=== PATIENT | female | born 1950 | race Caucasian/White ===

== ENCOUNTER 2022-09-21 07:32 | Outpatient (REF) | payer MEDICARE, SELFPAY ==
--- NOTE | ~2022-09-21 | MR_ITS ---
EXAMINATION: MR CERVICAL SPINE WITHOUT CONTRAST CLINICAL INFORMATION: Chronic paresthesias of upper extremities. COMPARISON: None. TECHNIQUE: Multiplanar, multisequential imaging of the cervical spine was performed without contrast. FINDINGS: VERTEBRAL BODIES AND PARASPINAL SOFT TISSUES: There are mixed chronic and mild edematous endplate changes with severe disc space narrowing at the C4-C5 level where there is a mild retrosubluxation. Similar significant loss of disc height and mild posterior subluxation evident at the C5-C6 level. The atlantoaxial articulation is maintained. There is a mild anterolisthesis at the C3-C4 level. Iohn-vz-cklkknyc loss of disc height evident at the C6-C7 level. There is a mild leftward curvature of the cervical spine. No compression fractures are seen. The paraspinal soft tissues are normal. The vertebral artery flow-voids are maintained. The imaged lung apices are clear. CERVICOMEDULLARY JUNCTION AND VISUALIZED POSTERIOR FOSSA: The craniovertebral junction and imaged portions of the brain parenchyma appear normal. No cord signal abnormality or syrinx is seen. There is a small dependent fluid level in the sphenoid sinus cavity. SPINAL LEVELS: C2-C3: No disc pathology. No central canal stenosis or foraminal narrowing. C3-C4: Mild anterolisthesis and small central disc protrusion. No central canal stenosis or foraminal narrowing. Mild facet arthropathy on the right side. C4-C5: Mixed edematous and chronic fatty marrow endplate changes with severe disc space narrowing and a mild retrosubluxation. Shallow, broad-based disc-osteophyte complex with very mild central canal encroachment. Severe bilateral foraminal narrowing. C5-C6: Severe loss of disc height and disc-osteophyte complex with mild central canal stenosis and severe bilateral foraminal narrowing. C6-C7: Efnx-wc-sddoyoil loss of disc height with posterior endplate spurring. Mild thickening of the ligamentum flavum. No significant central canal stenosis. Moderate left foraminal narrowing and milder right foraminal encroachment. C7-T1: No disc pathology. No central canal stenosis or foraminal narrowing. MR/MR cervical spine wo con IMPRESSION: 1. Multilevel cervical spondylosis, most severe at the C4-C5 level with mild edematous endplate changes at the C5-C6 level with resultant mild central canal stenosis and severe bilateral foraminal narrowing. 2. Moderate left foraminal narrowing at the C6-C7 level with [id number] loss of disc height and endplate spurring.
== END 2022-09-21 07:33 | disposition home or self-care (01) ==
LOC: HO.MRI 07:32
PROVIDERS: Visit Provider Family Medicine
DX: R20.2 Paresthesia of skin (principal)
CPT/HCPCS: 72141